=== PATIENT | male | born 1935 | race Hispanic/Latino ===

== ENCOUNTER 2019-07-04 17:51 | Inpatient (IN) | payer MEDICARE ==
[~2019-07-04] VITALS: Ht 157.5 cm; Wt 102.1 kg
[~2019-07-04 17:51] MED LIST: ACET325T51 PO; ALBU8.5H8 IH; AMLO5TAB9 PO; ASPI-891 PO; ATOR10TA69 PO; CARB200T6 PO; CHOL200074 PO; CLOT15CR62 TP; DOXA4TAB2 PO; ESOM20CA34 PO; FINA5TAB41 PO; FLUT1AER IH; FURO40TA5 PO; HYDR30CR79 RC; LISI40TA4 PO; NITR0.4T SL; PROP20TA7 PO; TAMS0.4C32 PO; TRIA80OI15 TP
[2019-07-04] MEDS ORDERED: HYDRALAZINE HCL 20 MG/ML VIAL ONE (18:19)
[2019-07-04] MEDS ORDERED: NITROGLYCERIN 1GM/1 INCH PACKET TD ONE ×2 (18:20→22:16)
[2019-07-04] MEDS ORDERED: ASPIRIN 325 MG TABLET ONE (18:20)
[2019-07-04 18:35] LABS: BASOPHILS % (AUTO) 0.4 % (0.0-5.0); EOSINOPHILS % (AUTO) 2.3 % (0.0-8.0); HEMATOCRIT 41.1 % (42-54); LYMPHOCYTES % (AUTO) 16.3 % (21.0-51.0); MEAN CORPUSCULAR HEMOGLOBIN 30.2 pg (27.0-33.0); MEAN CORPUSCULAR HGB CONC 34.1 g/dL (32.0-36.0); MEAN CORPUSCULAR VOLUME 88.8 fL (79-99); NEUTROPHILS % (AUTO) 68.4 % (40.0-77.0); PLATELET COUNT (AUTO) 181 K/uL (130-400); RED BLOOD CELL COUNT(AUTO) 4.63 MIL/uL (4.50-6.20); RED CELL DISTRIBUTION WIDTH 12.2 % (11.0-15.5); WHITE BLOOD COUNT (AUTO) 5.3 K/uL (4.8-10.8)
[2019-07-04 18:58] LABS: INR 1.04 (0.85-1.15); PARTIAL THROMBOPLASTIN TIME 29.8 SEC (26.3-35.5); PROTHROMBIN TIME 11.2 SEC (9.6-11.6)
[2019-07-04 19:06] LABS: B-TYPE NATRIURETIC PEPTIDE 89 pg/mL (0-100)
[2019-07-04 19:09] LABS: CREATININE 0.9 mg/dL (0.5-1.5)
[2019-07-04 19:13] LABS: ALBUMIN 3.7 g/dL (3.5-5.0); BILIRUBIN,TOTAL 0.5 mg/dL (0.2-1.0)
[2019-07-04] MEDS ORDERED: HYDRALAZINE HCL 20 MG/ML VIAL IV PRN (21:00)
[2019-07-04] MEDS ORDERED: ONDANSETRON HCL 4 MG/2 ML VIAL IV PRN (21:00)
[2019-07-04] MEDS ORDERED: METOPROLOL TARTRATE 25 MG TAB PO SCH (21:00)
[2019-07-04] MEDS ORDERED: MORPHINE SULFATE 2 MG/ML 1ML SYG IV PRN (21:00)
[2019-07-04] MEDS ORDERED: ACETAMINOPHEN 325 MG TAB PO PRN (21:00)
[2019-07-04] MEDS: FAMOTIDINE 20MG TAB 20 MG TAB PO SCH (21:00)
[2019-07-04] MEDS ORDERED: NITROGLYCERIN 0.4 MG SL TAB SL PRN (21:00)
[2019-07-04] MEDS: NITROGLYCERIN 1GM/1 INCH PACKET TD SCH (21:00)
[2019-07-04] MEDS: ATORVASTATIN CALCIUM 20 MG TABLET PO SCH (21:00)
[2019-07-04 22:05] LABS: CHOLESTEROL 137 mg/dL (<200); HDL CHOLESTEROL 92 mg/dL (29-71); LDL DIRECT 72 mg/dL (0-99); TRIGLYCERIDES 65 mg/dL (30-200)
[2019-07-04] MEDS ORDERED: ATORVASTATIN CALCIUM 20 MG TABLET ONE (22:16)
[2019-07-04] MEDS ORDERED: METOPROLOL TARTRATE 25 MG TAB ONE (22:16)
[2019-07-04] MEDS ORDERED: FAMOTIDINE 20MG TAB 20 MG TAB ONE (22:16)
[2019-07-05] VITALS (7 sets, daily range): BP systolic 128–183; BP diastolic 57–93
[2019-07-05] MEDS ORDERED: FURO20TA4 PO (03:41)
[2019-07-05] MEDS ORDERED: DOCU-272 PO (03:41)
[2019-07-05] MEDS ORDERED: OLME40TA18 PO (03:41)
[2019-07-05] MEDS ORDERED: CETI10TA57 PO (03:41)
[2019-07-05] MEDS ORDERED: DOXA8TAB81 PO (03:41)
[2019-07-05] MEDS ORDERED: ACET-66 PO (03:41)
[2019-07-05] MEDS ORDERED: ASPI-1181 PO (03:41)
[2019-07-05] MEDS ORDERED: AMLO2.5T4 PO (03:41)
[2019-07-05] MEDS: NITROGLYCERIN 1GM/1 INCH PACKET TD SCH ×3 (04:49→21:00)
[2019-07-05 06:38] LABS: BASOPHILS % (AUTO) 0.3 % (0.0-5.0); EOSINOPHILS % (AUTO) 0.7 % (0.0-8.0); HEMATOCRIT 39.5 % (42-54); LYMPHOCYTES % (AUTO) 7.8 % (21.0-51.0); MEAN CORPUSCULAR HEMOGLOBIN 30.1 pg (27.0-33.0); MEAN CORPUSCULAR HGB CONC 34.2 g/dL (32.0-36.0); MONOCYTES % (AUTO) 9.6 % (3.0-13.0); NEUTROPHILS % (AUTO) 81.2 % (40.0-77.0); PLATELET COUNT (AUTO) 173 K/uL (130-400); RED BLOOD CELL COUNT(AUTO) 4.49 MIL/uL (4.50-6.20); RED CELL DISTRIBUTION WIDTH 11.9 % (11.0-15.5); WHITE BLOOD COUNT (AUTO) 9.4 K/uL (4.8-10.8)
[2019-07-05 06:51] LABS: POTASSIUM 4.1 mmol/L (3.5-5.1)
[2019-07-05] MEDS: ASPIRIN 325 MG TABLET PO SCH (09:27)
[2019-07-05] MEDS: FAMOTIDINE 20MG TAB 20 MG TAB PO SCH ×2 (09:28→21:00)
[2019-07-05] MEDS: ENOXAPARIN SODIUM 40 MG/0.4 ML SYRINGE SQ SCH (09:29)
[2019-07-05] MEDS ORDERED: ALBUTEROL SULFATE 0.083% 2.5 MG/3 ML INH IH PRN (09:45)
[2019-07-05] MEDS: DOCUSATE SODIUM 100 MG CAP PO SCH ×2 (10:20→21:53)
[2019-07-05] MEDS ORDERED: PROPRANOLOL HCL 20 MG TAB PO SCH (10:20)
[2019-07-05] MEDS ORDERED: AMLODIPINE BESYLATE 2.5 MG TAB PO SCH (10:20)
[2019-07-05] MEDS ORDERED: PANTOPRAZOLE SODIUM 40 MG TABLET.DR PO SCH (10:20)
[2019-07-05] MEDS: FINASTERIDE 5 MG TABLET PO SCH (11:31)
[2019-07-05] MEDS: CARBAMAZEPINE 200 MG TABLET PO SCH ×3 (11:31→21:50)
[2019-07-05] MEDS: LOSARTAN 100 MG TABLET PO SCH (11:31)
[2019-07-05] MEDS: TAMSULOSIN HCL 0.4 MG CAP.ER.24H PO SCH (11:31)
[2019-07-05] MEDS: CETIRIZINE HCL 5 MG TABLET PO SCH (11:31)
[2019-07-05] MEDS: FUROSEMIDE 20 MG TABLET PO SCH (11:31)
[2019-07-05] MEDS: ALBUTEROL SULFATE 0.083% 2.5 MG/3 ML INH IH SCH ×3 (12:00→23:39)
[2019-07-05] MEDS: HYDROCHLOROTHIAZIDE 25 MG TABLET PO SCH (16:10)
--- NOTE | 2019-07-05 17:03 | NUR ---
INITIAL Patient lives with daughter, Dania Lama, [phone]. Another emergency contact is son, Kirk Lama, [phone]. No home health but does have PHC with [facility] In X 12 hours a week. Daughter is provider. DME: BPM, glucometer (no insulin), walker with seat, cane, CPAP. Patient states he is able to complete ADL's independently but does not drive. Family offers transportation. PCP is Dr. Dickson at [facility]. Pharmacy is [facility] in [place]. DCP is home. Addendum: 07/05/19 at 1706 by ZHANE AKHTAR SS Amended: Links added.
[2019-07-05] MEDS: BUDESONIDE 0.5 MG/2 ML INH IH SCH (19:46)
[2019-07-05] MEDS: TRIAMCINOLONE ACETONIDE 0.1% CREAM 15GM TP SCH (21:00)
[2019-07-05] MEDS: ATORVASTATIN CALCIUM 10 MG TABLET PO SCH (21:00)
[2019-07-05] MEDS: LABETALOL HCL 100 MG TABLET PO SCH (21:50)
[2019-07-05] MEDS: ATORVASTATIN CALCIUM 20 MG TABLET PO SCH (21:50)
[2019-07-05] MEDS: DOXAZOSIN MESYLATE 2 MG TABLET PO SCH (21:53)
[2019-07-05] MEDS: ACETAMINOPHEN 325 MG TAB PO PRN (22:01)
[2019-07-06 03:21] VITALS: BP 132/65
[2019-07-06] MEDS: NITROGLYCERIN 1GM/1 INCH PACKET TD SCH ×3 (05:00→21:00)
[2019-07-06 06:06] LABS: POTASSIUM 3.1 mmol/L (3.5-5.1)
[2019-07-06] MEDS: ALBUTEROL SULFATE 0.083% 2.5 MG/3 ML INH IH SCH ×4 (07:03→23:33)
[2019-07-06] MEDS: BUDESONIDE 0.5 MG/2 ML INH IH SCH ×2 (07:03→19:05)
[2019-07-06 07:51] VITALS: BP 152/77
[2019-07-06] MEDS: ASPIRIN 325 MG TABLET PO SCH (08:54)
[2019-07-06] MEDS: HYDROCHLOROTHIAZIDE 25 MG TABLET PO SCH (08:54)
[2019-07-06] MEDS: LOSARTAN 100 MG TABLET PO SCH (08:54)
[2019-07-06] MEDS: DOCUSATE SODIUM 100 MG CAP PO SCH ×2 (08:54→20:50)
[2019-07-06] MEDS: FUROSEMIDE 20 MG TABLET PO SCH (08:54)
[2019-07-06] MEDS: CETIRIZINE HCL 5 MG TABLET PO SCH (08:54)
[2019-07-06] MEDS: TAMSULOSIN HCL 0.4 MG CAP.ER.24H PO SCH (08:55)
[2019-07-06] MEDS: FINASTERIDE 5 MG TABLET PO SCH (08:55)
[2019-07-06] MEDS: LABETALOL HCL 100 MG TABLET PO SCH ×2 (08:55→20:50)
[2019-07-06] MEDS: CARBAMAZEPINE 200 MG TABLET PO SCH ×3 (08:55→20:52)
[2019-07-06] MEDS: ENOXAPARIN SODIUM 40 MG/0.4 ML SYRINGE SQ SCH (08:56)
[2019-07-06] MEDS: TRIAMCINOLONE ACETONIDE 0.1% CREAM 15GM TP SCH (08:57)
[2019-07-06] MEDS: FAMOTIDINE 20MG TAB 20 MG TAB PO SCH ×2 (09:00→21:00)
[2019-07-06] MEDS ORDERED: REGADENOSON 0.4 MG/5 ML PF SYG IVP SCH (10:15)
[2019-07-06 10:35] VITALS: BP 143/65
--- NOTE | 2019-07-06 14:35 | NUR ---
1430 Patient was out of room for Lexiscan procedure according to KYAW Pineda. I will return tomorrow and follow up with patient.
[2019-07-06 17:26] VITALS: BP 164/78
[2019-07-06 20:00] VITALS: BP 146/71
[2019-07-06] MEDS: ATORVASTATIN CALCIUM 10 MG TABLET PO SCH (20:50)
[2019-07-06] MEDS: DOXAZOSIN MESYLATE 2 MG TABLET PO SCH (20:52)
[2019-07-07] VITALS: BP 136/71
[2019-07-07 04:00] VITALS: BP 140/69
[2019-07-07 04:39] LABS: BASOPHILS % (AUTO) 0.3 % (0.0-5.0); EOSINOPHILS % (AUTO) 0.9 % (0.0-8.0); HEMATOCRIT 39.6 % (42-54); LYMPHOCYTES % (AUTO) 12.8 % (21.0-51.0); MEAN CORPUSCULAR HEMOGLOBIN 30.4 pg (27.0-33.0); MEAN CORPUSCULAR HGB CONC 34.8 g/dL (32.0-36.0); MEAN CORPUSCULAR VOLUME 87.2 fL (79-99); NEUTROPHILS % (AUTO) 69.6 % (40.0-77.0); PLATELET COUNT (AUTO) 174 K/uL (130-400); RED BLOOD CELL COUNT(AUTO) 4.54 MIL/uL (4.50-6.20); WHITE BLOOD COUNT (AUTO) 7.7 K/uL (4.8-10.8)
[2019-07-07 04:50] LABS: B-TYPE NATRIURETIC PEPTIDE 52 pg/mL (0-100)
[2019-07-07 04:55] LABS: MAGNESIUM 1.6 mg/dL (1.80-2.40); PHOSPHORUS 4.3 mg/dL (2.5-4.9); THYROID STIMULATING HORMONE 2.28 uIU/mL (0.36-3.74); URIC ACID 3.2 mg/dL (2.6-7.2)
[2019-07-07] MEDS: NITROGLYCERIN 1GM/1 INCH PACKET TD SCH (05:00)
[2019-07-07] MEDS: BUDESONIDE 0.5 MG/2 ML INH IH SCH ×2 (07:08→19:10)
[2019-07-07] MEDS: ALBUTEROL SULFATE 0.083% 2.5 MG/3 ML INH IH SCH ×4 (07:08→23:19)
[2019-07-07 08:00] VITALS: BP 136/66
--- NOTE | 2019-07-07 08:00 | NUR ---
AM SHIFT ASSESSMENT: NPO FOR POSSIBLE HEART CATH. PENDING LEXISCAN TO BE READ.
[2019-07-07] MEDS: DOCUSATE SODIUM 100 MG CAP PO SCH ×2 (09:00→20:53)
[2019-07-07] MEDS: FINASTERIDE 5 MG TABLET PO SCH (09:00)
[2019-07-07] MEDS: HYDROCHLOROTHIAZIDE 25 MG TABLET PO SCH (09:00)
[2019-07-07] MEDS: ASPIRIN 325 MG TABLET PO SCH (09:00)
[2019-07-07] MEDS: FUROSEMIDE 20 MG TABLET PO SCH (09:00)
[2019-07-07] MEDS: TAMSULOSIN HCL 0.4 MG CAP.ER.24H PO SCH (09:00)
[2019-07-07] MEDS: FAMOTIDINE 20MG TAB 20 MG TAB PO SCH ×2 (09:00→20:54)
[2019-07-07] MEDS: ENOXAPARIN SODIUM 40 MG/0.4 ML SYRINGE SQ SCH (09:00)
[2019-07-07] MEDS: LOSARTAN 100 MG TABLET PO SCH (09:00)
[2019-07-07] MEDS: CETIRIZINE HCL 5 MG TABLET PO SCH (09:00)
[2019-07-07] MEDS: CARBAMAZEPINE 200 MG TABLET PO SCH ×3 (09:00→20:53)
[2019-07-07] MEDS: LABETALOL HCL 100 MG TABLET PO SCH ×2 (09:00→20:53)
[2019-07-07 09:22] LABS: POTASSIUM 3.4 mmol/L (3.5-5.1)
[2019-07-07] MEDS ORDERED: MAGNESIUM 2GM PREMIX 50ML 50 ML IV ONE (09:49)
[2019-07-07] MEDS ORDERED: LIDOCAINE HCL-MPF 1% 2ML VIAL IJ PRN (10:00)
[2019-07-07] MEDS ORDERED: POTASSIUM CHLORIDE 20MEQ/100ML 100 ML IV PRN ×2 (10:00→16:30)
[2019-07-07] MEDS ORDERED: MAGNESIUM 2GM PREMIX 50ML 50 ML IV SCH (10:00)
[2019-07-07 12:00] VITALS: BP 142/66
--- NOTE | 2019-07-07 14:00 | NUR ---
LULI NORMAL, HOWEVER MD WANTS TO KEEP OVERNIGHT TO MONITOR BP SOME CHANGES WITH MEDS WERE DONE. PT. NOT HAPPY ABOUT STAYING ANOTHER NIGHT.
[2019-07-07] MEDS: ACETAMINOPHEN 325 MG TAB PO PRN (14:14)
--- NOTE | 2019-07-07 14:51 | NUR ---
4030 patient signed IM Letter, I faxed IM Letter to [phone] and placed in chart under consent tab
[2019-07-07 16:00] VITALS: BP 105/53
[2019-07-07] MEDS ORDERED: POTASSIUM CHLORIDE 20 MEQ ERTAB PO PRN (16:30)
[2019-07-07] MEDS ORDERED: POTASSIUM CHLORIDE 10% ELIXIR 20 MEQ/15 ML UDCUP PO PRN (16:30)
[2019-07-07] MEDS ORDERED: POTASSIUM CHLORIDE 10% ELIXIR 20 MEQ/15 ML UDCUP ONE (16:32)
[2019-07-07 19:00] VITALS: BP 151/71
[2019-07-07] MEDS: DOXAZOSIN MESYLATE 2 MG TABLET PO SCH (20:53)
[2019-07-07] MEDS: ATORVASTATIN CALCIUM 10 MG TABLET PO SCH (20:53)
[2019-07-08] VITALS: BP 136/69
[2019-07-08 04:00] VITALS: BP 119/54
[2019-07-08 05:58] LABS: POTASSIUM 3.7 mmol/L (3.5-5.1)
[2019-07-08] MEDS: ALBUTEROL SULFATE 0.083% 2.5 MG/3 ML INH IH SCH ×2 (06:45→11:24)
[2019-07-08] MEDS: BUDESONIDE 0.5 MG/2 ML INH IH SCH (06:45)
[2019-07-08 08:00] VITALS: BP 149/63
--- NOTE | 2019-07-08 08:00 | NUR ---
AM SHIFT ASSESSMENT. SLEPT WELL, HOPING TO GO HOME TODAY.
[2019-07-08] MEDS: CETIRIZINE HCL 5 MG TABLET PO SCH (09:04)
[2019-07-08] MEDS: LOSARTAN 100 MG TABLET PO SCH (09:04)
[2019-07-08] MEDS: TAMSULOSIN HCL 0.4 MG CAP.ER.24H PO SCH (09:04)
[2019-07-08] MEDS: DOCUSATE SODIUM 100 MG CAP PO SCH (09:04)
[2019-07-08] MEDS: CARBAMAZEPINE 200 MG TABLET PO SCH (09:04)
[2019-07-08] MEDS: FUROSEMIDE 20 MG TABLET PO SCH (09:05)
[2019-07-08] MEDS: LABETALOL HCL 100 MG TABLET PO SCH (09:06)
[2019-07-08] MEDS: FINASTERIDE 5 MG TABLET PO SCH (09:06)
[2019-07-08] MEDS: ENOXAPARIN SODIUM 40 MG/0.4 ML SYRINGE SQ SCH (09:07)
[2019-07-08] MEDS: TRIAMCINOLONE ACETONIDE 0.1% CREAM 15GM TP SCH (09:09)
[2019-07-08 12:00] VITALS: BP 114/61
--- NOTE | 2019-07-08 12:00 | NUR ---
DR. RAVI IN TO SEE PT. PLAN TO DISCHARGE TODAY.
[2019-07-08] MEDS ORDERED: LABE100T5 PO (13:30)
[2019-07-08] MEDS ORDERED: NIFE-40 PO (13:30)
[2019-07-08] MEDS ORDERED: LOSA100T2 PO (13:30)
--- NOTE | 2019-07-08 15:00 | NUR ---
DISCHARGED TO HOME INST. GIVEN USING TEACH BACK, GIVEN TO PT. WITH SON PRESENT. RX SENT ELECTRONICALLY TO [facility].WILL FOLLOW UP WITH PCP NEXT WEEK. ADVISED TO MONITOR BP AND CARRY COPY TO PCP WHEN HE GOES TO SEE HIM.ALSO TOLD HIM TO TAKE HIS MEDICATIONS TO SHOW MD.ACO COORDINATOR REMOVED AND SALINE LOCK DCD PRIOR TO DC.
[2019-07-08] MEDS ORDERED: NIFEDIPINE ER 30 MG TAB PO SCH (17:00)
[2019-07-08] MEDS ORDERED: RANITIDINE HCL 15 MG/1 ML PO SCH (21:00)
== END 2019-07-08 15:30 | disposition home or self-care (01) | DRG 305 ==
LOC: EDH 17:51 → OBSVTOIN 20:55 → EDHIP 20:55 → 3BH 07-05 02:16
PROVIDERS: ADMIT Internal Medicine; ATTEND Internal Medicine
DX: I16.0 Hypertensive urgency (principal); Z68.41 Body mass index [BMI] 40.0-44.9, adult; E87.1 Hypo-osmolality and hyponatremia; I25.110 Atherosclerotic heart disease of native coronary artery with unstable angina pectoris; I48.0 Paroxysmal atrial fibrillation; K21.9 Gastro-esophageal reflux disease without esophagitis; E11.9 Type 2 diabetes mellitus without complications; E66.9 Obesity, unspecified; E78.5 Hyperlipidemia, unspecified; E87.6 Hypokalemia; G47.30 Sleep apnea, unspecified; I10 Essential (primary) hypertension; J44.9 Chronic obstructive pulmonary disease, unspecified; N40.0 Benign prostatic hyperplasia without lower urinary tract symptoms; Z83.3 Family history of diabetes mellitus; Z82.5 Family history of asthma and other chronic lower respiratory diseases; Z82.49 Family history of ischemic heart disease and other diseases of the circulatory system; R07.9 Chest pain, unspecified
CPT/HCPCS: 36415; 71045; 76770; 78452; 80048; 80053; 80061; 82550; 83735; 83880; 84100; 84443; 84484; 84550; 85025; 85610; 85730; 93005; 93017; 93306; 93975; 94640; 94664; 96374; 99291; A9500; G0378; J0360; J1650; J2785; J3475; J3480; J3490